=== PATIENT | male | born 1965 | race Caucasian/White ===

== ENCOUNTER 2023-09-20 09:42 | Emergency (ER) | payer OTHER, SELFPAY ==
[2023-09-20 09:43] VITALS: BP 147/87; PULSE 75; RESP 16; TEMP 36.4; O2SAT 94; BMI 32.4
--- NOTE | 2023-09-20 09:47 | EDS_ITS ---
HPI HPI - GI History of Present Illness Chief Complaint: Abd Pain Informant: patient Abdominal Pain/Flank Pain Onset: Days (2) Context: Gradual Onset Timing: Continuous Quality: Dull and Sharp Location: LUQ and LLQ Worsened by: Movement Relieved by: Nothing Nausea/Vomiting/Emesis GI Symptom: Negative for Nausea or Vomiting Diarrhea/Melena/Hematochezia GI Symptom: Negative for Diarrhea, Melena or Hematochezia Associated Symptoms Associated Symptoms: Negative for Dysuria, Frequency or Hematuria Narrative Narrative: Patient presents with abdominal pain that has been getting progressively worse. Patient states that it has been constant for the past 2 days. Patient states that prior to that has been intermittent. Patient describes the pain as sharp at times and dull at times. Patient states that his pain is mainly on the left side of his abdomen. Patient states it is worse with certain movements. Patient denies any nausea or vomiting. Patient denies any diarrhea, melena, or hematochezia. Patient denies any dysuria, frequency, or hematuria. Patient denies any fevers or chills. PFSH PFSH Medical History no medical history no medical history Allergy/AdvReac Type Severity Reaction Status Date / Time No Known Allergies Allergy Verified 09/20/23 09:44 Surgical History (Updated 09/20/23 @ 10:[address] Raj Quintero DO) History of inguinal herniorrhaphy History of surgery on left wrist S/P ORIF (open reduction internal fixation) fracture Social History Smoking Status: Never smoker ROS ROS ED Constitutional Constitutional ED: Denies chills or fever(s) Eyes Eyes: Denies blurry vision or change in vision ENT ENT ED: Denies rhinorrhea or sore throat Cardiovascular Cardiovascular: Reports chest pain; Denies palpitations Respiratory/Chest Respiratory/Chest: Denies cough or dyspnea Gastrointestinal Gastrointestinal: Reports abdominal pain; Denies nausea or vomiting Genitourinary Genitourinary ED: Denies dysuria or hematuria Musculoskeletal Musculoskeletal: Denies back pain or neck pain Integumentary Denies abscess or rash Neurologic Neurologic: Denies headache(s) or weakness Allergic/Immunologic Allergic/Immunologic ED: Denies mouth swelling or urticaria EXAM Physical Exam Const Vital Signs: 09/20/23 09:43 Temperature 97.5 F L Temperature Source Temporal Pulse Rate 75 Respiratory Rate 16 Blood Pressure 147/87 H Blood Pressure Mean 107 Pulse Ox 94 Oxygen Delivery Method Room Air Positive well nourished and well developed General Appearance ED: well developed and NAD HEENT Reports moist mucous membranes Neck supple and no JVD Resp normal respiratory effort and clear to auscultation bilaterally Cardio regular rate and regular rhythm GI Palpation: soft and tender LLQ and LUQ; Negative for guarding or rebound tenderness present Back/Spine no CVA tenderness Extremity full ROM Neuro CN's II-XII intact bilaterally, moves all extremities and no sensory deficits noted Sensorium / Orientation: alert Motor Exam: strength 5/5 throughout Psych mental status grossly normal MDM MDM MDM Narrative Medical decision making narrative: Differential diagnosis includes diverticulitis, colitis, bowel obstruction, perforation, ureteral calculus, pyelonephritis, urinary tract infection, and abdominal strain. CT scan of the abdomen pelvis will be obtained to assess for ureteral calculus, bowel obstruction, and perforation. CBC will be obtained to assess for leukocytosis and anemia. Basic metabolic profile will be obtained to assess for electrolyte abnormality and renal function. Urinalysis will be obtained to assess for urinary tract infection and hematuria. Lab Data Attestation: I reviewed the patient's lab results. Lab results narrative: CBC was reviewed and was within normal limits. Basic metabolic profile was reviewed and was within normal limits. Urinalysis was reviewed. There is no evidence of urinary tract infection or hematuria. Labs: Laboratory Results - last 24 hr 09/20/23 10:00 WBC 8.0 RBC 4.87 Hgb 14.1 Hct 42.6 MCV 87.5 MCH 29.0 MCHC 33.1 RDW Std Deviation 42.0 RDW Coeff of Reinaldo 13.2 Plt Count 222 MPV 10.7 Immature Gran % (Auto) 0.300 Neut % (Auto) 54.3 Lymph % (Auto) 30.2 [place] % (Auto) 12.5 H Eos % (Auto) 1.9 Baso % (Auto) 0.8 Absolute Neuts (auto) 4.3 Absolute Lymphs (auto) 2.40 Nucleated RBC % 0 Sodium 138 Potassium 4.1 Chloride 109 H Carbon Dioxide 24.0 Anion Gap 5 BUN 18 Creatinine 1.01 Estim Creat Clear Calc 76.19 Est GFR (MDRD) Af Amer 97 Est GFR (MDRD) Non-Af 80 BUN/Creatinine Ratio 17.8 Glucose 97 Calcium 9.0 Urine Color Yellow Urine Clarity Sl. Cloudy Urine pH 6.0 Ur Specific [place] 1.010 Urine Protein Negative Urine Glucose (UA) Normal Urine Ketones Negative Urine Occult Blood Negative Urine Nitrite Negative Urine Bilirubin Negative Urine Urobilinogen Normal Ur Leukocyte Esterase Negative Urine RBC 0 SEEN Urine WBC 0 SEEN Ur Squamous Epith Cells 0 SEEN Urine Bacteria 0 SEEN Urine Mucus 0 SEEN Radiography Diagnostic Testing: Clinical Impression(s) from Imaging Studies Abdomen/Pelvis CT 09/20/23 10:29 IMPRESSION: 1. Small gallstone without evidence of biliary dilatation. 2. No focal acute inflammatory process. Electronically Signed: Marco Cadet MD at 11:42 EST , CT scan of the abdomen pelvis was obtained. There is a small gallstone but no evidence of biliary dilatation or pericholecystic fluid. There is no acute inflammatory process noted. This was interpreted by the radiologist and was also independently reviewed by myself. Treatment and Re-Evaluation :: Patient was given IV fluids, morphine, and Zofran. Patient was advised of his findings. Patient is feeling better on reevaluation. Patient was instructed to follow-up with his primary care physician in 5 to 7 days for further evaluation. Patient was advised he may need further testing as an outpatient. Patient understood and was agreeable with the plan. All questions were answered. Discharge Plan Triage Chief Complaint: Abd Pain ED Provider: Raj Quintero Dx/Rx/DC Orders Clinical Impression: Abdominal pain Instructions: ED Abdominal Pain Unkn Cause Male... Primary Care Provider: Gil Magdaleno Referrals: Gil Magdaleno DO [Primary Care Provider] - 5-7 Days Disposition Disposition: Home, Self Care
--- NOTE | 2023-09-20 10:29 | CT_ITS ---
INDICATION: Abdominal pain EXAMINATION: CT ABDOMEN AND PELVIS WITHOUT CONTRAST - CT Abdomen And Pelvis W/O Contrast Injection TECHNIQUE: Helically acquired images were obtained of the abdomen and pelvis without oral or IV contrast. A radiation dose optimization technique was used for this scan. IV Contrast dosage and agent: None. Oral contrast: None. RADIATION DOSAGE (If Supplied By Facility): CTDIvol = ( 17.23 ) mGy, DLP = ( 865.46 ) mGycm COMPARISON: No relevant prior comparison study available FINDINGS: LOWER CHEST: Mild atelectasis or scarring. No cardiomegaly or pericardial effusion. LIVER: Homogeneous. No focal lesion is seen on this exam without contrast. Significant artifacts from patient''s arms GALLBLADDER AND BILIARY TREE: Small gallstone in the gallbladder neck. No gallbladder distension or wall edema. No intra- or extrahepatic biliary ductal dilation. PANCREAS: No focal cystic or solid mass. SPLEEN: Normal size without focal cystic or solid mass. ADRENAL GLANDS: No nodules. KIDNEYS AND URETERS: Normal renal size and position. No hydronephrosis. PERITONEUM: No ascites or free air. No other fluid collection. BOWEL: No evidence of acute appendicitis. No stomach or bowel distension. Thickening of the transverse and descending colon likely due to underdistention. No evidence of acute diverticulitis. LYMPH NODES: No enlarged mesenteric or retroperitoneal lymph nodes. VESSELS: Aorta is non-dilated. URINARY BLADDER: Unremarkable. REPRODUCTIVE ORGANS: No pelvic masses. ABDOMINAL WALL: No discrete abdominal or pelvic wall hernia. BONES: No lytic or blastic abnormality. CT/Abdomen/Pelvis without Cont IMPRESSION: 1. Small gallstone without evidence of biliary dilatation. 2. No focal acute inflammatory process. Electronically Signed: Marco Cadet MD at 11:42 EST ,
[2023-09-20 10:38] LABS: Bacteria 0 SEEN /hpf (None Seen); Mucous, Urine 0 SEEN /hpf (<or=2+); Red Blood Cells-Urine 0 SEEN /hpf (0-5); Squamous Epithelial Cells - UA 0 SEEN /hpf (0-5); White Blood Cells 0 SEEN /hpf (0-5)
[2023-09-20 10:40] LABS: Color, Urine Yellow (Yellow); Glucose, Dipstick Normal (Normal); Ketone-Dipstick Negative (Negative); Leukocyte Esterase-Dipstick Negative /ul (Negative); Nitrite-Dipstick Negative (Negative); Occult Blood-Urine Negative /ul (Negative); Protein-Dipstick Negative (Negative); Urine Bilirubin Dipstick Negative (Negative); Urine Clarity Sl. Cloudy (Clear); Urine Urobilinogen Normal (Normal)
[2023-09-20] MEDS: Ondansetron 4 MG/2 ML Vial IV (10:41)
[2023-09-20] MEDS: Morphine 4 MG/ML Syringe IV (10:42)
[2023-09-20] MEDS: 0.9% Normal Saline (1000mL) 1,000 ML 1000 ML IV (10:42)
[2023-09-20 10:49] LABS: Absolute Neutrophil Count 4.3 X10^3/uL (2.0-7.7); Basophil# 0.06 X10^3/uL; Basophil% 0.8 % (0-1); Eosinophil# 0.15 X10^3/uL; Eosinophils% 1.9 % (0-5); Hematocrit 42.6 % (40-54); Hemoglobin 14.1 g/dL (13.0-16.5); Lymphocyte % 30.2 % (19-41); Mean Corp Hgb Conc 33.1 g/dL (32-36); Mean Corpuscular Volume 87.5 fL (80-94); Mean Platelet Vol. 10.7 fl (6.2-12.0); Monocyte# 0.99 X10^3/uL; Monocyte% 12.5 % (0-10); NRBC Flagged by Analyzer 0 % (0-5); Neutrophil # 4.33 X10^3/uL (2.7-7.7); Neutrophil % 54.3 % (47-70); Platelet Count 222 K/mm3 (150-450); RBC Distribution Width CV 13.2 % (11.6-14.6); Red Blood Count 4.87 M/mm3 (4.6-6.2)
[2023-09-20 10:56] LABS: Anion Gap 5 (5-15); BUN 18 mg/dL (7-18); BUN/Creat Ratio 17.8 RATIO (10-20); Chloride 109 mmol/L (98-107); Creatinine, Serum 1.01 mg/dL (0.70-1.30); EST Glomerular Filtration Rate 80 mL/min (>60); Est Glom Filt Rate - Afr Amer 97 mL/min (>60); Estimated Creatinine Clearance 76.19 ml/min; Glucose 97 mg/dL (74-106); Potassium 4.1 mmol/L (3.5-5.1); Sodium Level 138 mmol/L (136-145)
--- OUTSIDE RECORDS SUMMARY | 2023-09-20 11:30 | XMS RPT_ITS | CCD ---
Author Name Unknown Address [facility] [address] [place] [address] Organization [facility] Care Team Providers Care Asbestos Worker Name Role Phone PHYSICIAN, NONE Primary Care Physician Unavailab le Medications Current Medications Medication Drug Class(es) Dates Sig (Normalized) Sig (Original) acetaminophen 1000 mg oral tablet (1 source) Start: 06-19-2019 Tylenol Dose : 1,000 mg = 2 tab(s), Oral, q6h, PRN as needed for pain, 0 Refill(s) Start Date: 06/19/19 Status: Ordered bacitracin 0.5 unt/mg topical ointment (1 source) Start: 06-19-2019 bacitracin topical ointment Apply 1 nelsy, Topical, TID, 0 Refill(s), Ointment Start Date: 06/19/19 Status: Ordered docusate sodium 100 mg oral capsule (1 source) Start: 06-19-2019 Colace 100 mg oral capsule Dose : 100 mg = 1 cap(s), Oral, BID, PRN Constipation, 0 Refill(s) Start Date: 06/19/19 Status: Ordered ibuprofen 600 mg oral tablet (1 source) Nonsteroidal Anti-inflammatory Drug Start: 06-19-2019 Motrin Dose : 600 mg = 1 tab(s), Oral, TID, PRN as needed for pain, 0 Refill(s) Start Date: 06/19/19 Status: Ordered Milk of Magnesia (1 source) Start: 06-19-2019 take 1 dose by mouth once daily as needed for constipation Milk of Magnesia Dose = 30 mL, Oral, qDay, PRN Constipation, 0 Refill(s) Start Date: 06/19/19 Status: Ordered Completed/Discontinued Medications Medication Drug Class(es) Dates Sig (Normalized) Sig (Original) bisacodyl 10 mg rectal suppository (1 source) Stimulant Laxative Start: 06-19-2019 Dulcolax Laxative 10 mg rectal suppository Dose : 10 mg = 1 supp, Rectal, qDay, PRN Constipation, 0 Refill(s) Start Date: 06/19/19 Status: Ordered Results Test Name Value Interpretation Reference Range Facil ity Encounters Encounter Date Encounter Type Care Provider Facility Start: 02-10-2022 End: 02-10-2022 Patient encounter procedure STELLA GATES [facility] Procedures Date Procedure Procedure Detail Performing Clinician Elbow joint operations STELLA KODY Hernia repair STELLA KODY Tendon laceration (disorder) STELLA GATES Social History Date Type Detail Facility Start: 06-17-2019 Tobacco smoking status Light t obacco smoker (finding) [facility] Sex Assigned At Male [facility] Evaluation + Plan note Note Date & Type Note Facility Evaluation + Plan note No data available for this section [facility] Discharge instructions Note Date & Type Note Facility Hospital Discharge instructions No data available for this section [facility] Progress note Note Date & Type Note Facility Progress note No data available for this section [facility] Summary Purpose Family History No Family History Records Found Advance Directives No Advanced Directives Records Found Additional Source Comments (unrecognized sect ion and content) No Status Records Found INFORMATION SOURCE (unrecogn ized section and content) FOR RECORDS PERTAINING TO PATIENTS WHO ARE OR HAVE BEEN ENROLLED IN A CHEMICAL DEPENDENCY/SUBSTANCEABUSE PROGRAM, SOME INFORMATION MAY BE OMITTED. This clinical summary was aggregated from multiple sources. Caution should be exercised in using it in the provision of clinical care. This summary normalizes information from multiple sources, and as a consequence, information in this document may materially change the coding, format and clinical context of patient data. In addition, data may be omitted in some cases. CLINICAL DECISIONS SHOULD BE BASED ON THE PRIMARY CLINICAL RECORDS. [facility]. provides no warranty or guarantee of the accuracy or completeness of information in this document.
== END 2023-09-20 12:17 | disposition home or self-care (01) ==
PROVIDERS: Emergency Provider Emergency Medicine; PCP Family Medicine; Visit Provider Emergency Medicine
DX: R10.9 Unspecified abdominal pain (principal)
CPT/HCPCS: 74176; 80048; 81001; 85025; 96361; 96374; 96375; 99283; J7030; A4216; J2405

== ENCOUNTER → 2024-08-23 | Outpatient (CLI) | payer SELFPAY ==
--- NOTE | 2024-08-23 16:39 | CT_ITS ---
STUDY: CT ABDOMEN AND PELVIS WITHOUT CONTRAST REASON FOR EXAM: Male, 59 years old. LEFT SIDED PAIN GOING INTO CHEST. R/O LEFT INGUINAL HERNIA. PRIOR LEFT INGUINAL HERNIA REPAIR RADIATION DOSAGE (If Supplied By Facility): CTDIvol = ( 14.68 ) mGy, DLP = ( 829.15 ) mGycm TECHNIQUE: Transaxial images were obtained from the dome of the diaphragm to the symphysis pubis without oral contrast, and without intravenous contrast. Sagittal and coronal images were reconstructed. Individualized dose optimization techniques were used for this CT. COMPARISON: Comparison is made with prior study dated September 20, 2023. FINDINGS: There is a 1.8 cm x 1.4 cm well-defined nodule in the posterior lateral aspect of the left lower lobe. Minimal calcification is seen. This may represent a hamartoma.. Mild coronary artery calcification. Normal liver. There is a small solitary gallstone. Normal spleen. Normal pancreas. Normal bilateral adrenal glands. Normal right kidney. Normal left kidney. There is a small hiatal hernia. Normal small intestine. Normal colon. The appendix is visualized and appears normal. Normal abdominal aorta. Normal inferior vena cava. There is a small retroperitoneal lymphadenopathy with enlarged nodes no greater than 10mm in the short axis diameter. Normal urinary bladder. There is a small umbilical hernia containing fat. There are degenerative changes of the visualized lumbar spine. CT/Abdomen/Pelvis without Cont IMPRESSION: 1.8 cm x 1.4 cm well-defined nodule in the posterolateral aspect of the left lower lobe. Minimal calcification is seen. This may represent a hamartoma. Stable small solitary gallstone. Electronically Signed: Colt Weir MD at 14:38 EST ,
== END | disposition home or self-care (01) ==
LOC: CT 16:33
PROVIDERS: PCP Nurse Practitioner Family; Referring Provider Nurse Practitioner Family; Visit Provider Nurse Practitioner Family
DX: K46.9 Unspecified abdominal hernia without obstruction or gangrene (principal)
CPT/HCPCS: 74176

== ENCOUNTER 2024-12-18 21:53 | Emergency (ER) | payer SELFPAY ==
[2024-12-18 21:54] VITALS: BP 200/94; PULSE 65; RESP 16; TEMP 36.8; O2SAT 96
[2024-12-18 22:10] LABS: Absolute Lymphocyte Count 2.56 X10^3/uL (0.83-4.51); Absolute Neutrophil Count 5.4 X10^3/uL (2.0-7.7); Basophil# 0.08 X10^3/uL; Basophil% 0.9 % (0-1); Eosinophil# 0.16 X10^3/uL; Eosinophils% 1.7 % (0-5); Hematocrit 41.9 % (40-54); Hemoglobin 14.3 g/dL (13.0-16.5); Lymphocyte # 2.56 X10^3/ul (0.83-4.51); Lymphocyte % 27.6 % (19-41); Mean Corp Hgb Conc 34.1 g/dL (32-36); Mean Corpuscular Hgb 29.4 pg (27.0-32.0); Mean Platelet Vol. 10.1 fl (6.2-12.0); Monocyte# 1.01 X10^3/uL; Monocyte% 10.9 % (0-10); NRBC Flagged by Analyzer 0 % (0-5); Neutrophil # 5.44 X10^3/uL (2.7-7.7); Neutrophil % 58.6 % (47-70); Platelet Count 199 K/mm3 (150-450); RBC Distribution Width CV 13.3 % (11.6-14.6); RBC Distribution Width SD 41.5 fl (35.1-43.9); Red Blood Count 4.87 M/mm3 (4.6-6.2); White Blood Count 9.3 K/mm3 (4.4-11.0)
--- NOTE | 2024-12-18 22:36 | EX.ED.DYSGE1 ---
HPI History of Present Illness Chief Complaint: Abd Pain PFSH PFSH Home Medications ?Medication ?Instructions ?Recorded ?Last Taken ?Type omega-3 fatty acids 500 mg capsule 500 mg PO DAILY 12/18/24 Unknown History sertraline 50 mg tablet 50 mg PO DAILY 12/18/24 Unknown History ondansetron 4 mg disintegrating 4 mg PO Q8H PRN PRN Nausea #10 tabs 12/19/24 Unknown Rx tablet Allergy/AdvReac Type Severity Reaction Status Date / Time No Known Allergies Allergy Verified 12/18/24 21:59 Surgical History (Updated 09/20/23 @ 10:[address] Raj Quintero DO) S/P ORIF (open reduction internal fixation) fracture History of surgery on left wrist History of inguinal herniorrhaphy Social History Smoking Status: Never smoker EXAM Physical Exam Const Vital Signs: 12/18/24 21:54 12/18/24 23:53 Temperature 98.3 F Temperature Source Oral Pulse Rate 65 61 Respiratory Rate 16 18 Blood Pressure 200/94 H 113/70 Blood Pressure Mean 129 84 Pulse Ox 96 94 Oxygen Delivery Method Room Air Room Air MDM [facility] MDM Narrative Medical decision making narrative: HISTORY OF PRESENT ILLNESS: Chief complaint: Abdominal pain 59-year-old male here with left abdominal pain. Notes this began today. Is severe it is acute his left lower quadrant. No chest pain or shortness of breath. No urinary complaints. No flank pain. REVIEW OF SYSTEMS: Pertinent positives: Abdominal pain, nausea Pertinent negatives: Urinary complaints, flank pain PHYSICAL EXAM: Nursing triage notes reviewed, Vital signs reviewed Constitutional: please see mdm HENT: MMM Eyes: Pupils equal round and reactive to light, Extraocular muscles intact Neck: No stridor, no JVD, full neck ROM Lungs: Clear to auscultation, No wheezing or rales. No increased work of breathing, no conversational dyspnea, no accessory muscle use, no nasal flaring. No respiratory distress noted Heart: Regular rate and rhythm, No murmurs, No rubs and No gallops, 2+ distal pulses (radial, femoral, posterior tibial) in all extremities Abdomen: Soft, left lower quadrant TTP, slight distention but no rigidity, rebound or guarding, no obvious peritoneal signs, no palpable pulsatile abdominal masses, no auscultated abdominal bruit : No CVAT Extremities: No edema Neuro: No new focal neurological deficits, cranial nerves II through XII intact, 5/5 strength in all present extremities. Intact sensation to light touch in all present extremities, 2+ reflexes bilateral patella tendons. Skin: No rash or lesions noted MEDICAL DECISION MAKING: Chief Complaint: please see HPI External records reviewed: Reviewed prior CT scan abdomen pelvis from August 2024 which showed A small hiatal hernia, normal intestine, normal colon, no report of a hernia in this read. Factors affecting care: Gallstone, hiatal hernia Social determinants of health: none History obtained from others: none Consults: none [facility] Narrative: The patient was initially hypertensive otherwise afebrile nontoxic-appearing. With left lower quadrant TTP. Slight distention but no peritoneal signs. I considered the following differential diagnosis: AAA, small bowel obstruction, abdominal perforation, appendicitis, pancreatitis, hepatobiliary pathology (acute cholecystitis), mesenteric ischemia, pathology (ie nephrolithiasis, pyelonephritis). ALL IMAGES (IF OBTAINED) HAVE BEEN PERSONALLY REVIEWED AND INTERPRETED BY MYSELF. CBC without leukocytosis, severe anemia, no thrombocytopenia. CMP without evidence of acute kidney injury, significant electrolyte abnormality, anion gap to suggest end organ hypo-perfusion, no evidence of metabolic acidosis with a normal bicarbonate, no evidence of hepatobiliary obstructive pathology. Lipase is wnl indicating no pancreatic inflammation. CT scan abdomen/pelvis shows no evidence of obvious life-threatening pathology lactate is wnl indicating no end-organ hypoperfusion and/or hypoxia. On reassessment repeat abdominal exam is benign. Blood pressure improved to 113/70. The etiology the patient's complaints unclear could be gas could be musculoskeletal but is not life-threatening given unremarkable labs and images. Patient is appropriate discharge home The patient and/or family, caregivers express understanding. The patient and/or family, caregivers agrees with the plan. Shared decision making: I will have a discussion with the patient and or visitors regarding risk/benefits of further testing or admission. They will be made aware of of the risk/benefits inherent in this decision they will be given the opportunity to voice understanding. Total critical care time today provided was at least 0 minutes. This excludes separately billable procedures. Critical care time (if documented) is secondary to the patient having high probability of clinically significant/life threatening deterioration in the patient's condition which required my urgent intervention. Impression: 1. Acute abdominal pain 2. Diverticulosis Dispo: Discharge This note was generated with Elecar dictation software. It may contain incorrect words, spelling, and punctuation that were not noted in review of the chart prior to signing. Lab Data Labs: Laboratory Results - last 24 hr 12/18/24 12/18/24 12/18/24 21:41 22:35 23:06 WBC 9.3 RBC 4.87 Hgb 14.3 Hct 41.9 MCV 86.0 MCH 29.4 MCHC 34.1 RDW Std Deviation 41.5 RDW Coeff of Reinaldo 13.3 Plt Count 199 MPV 10.1 Immature Gran % (Auto) 0.300 Neut % (Auto) 58.6 Lymph % (Auto) 27.6 [place] % (Auto) 10.9 H Eos % (Auto) 1.7 Baso % (Auto) 0.9 Absolute Neuts (auto) 5.4 Absolute Lymphs (auto) 2.56 Nucleated RBC % 0 Sodium 139 Potassium 4.2 Chloride 105 Carbon Dioxide 21.4 Anion Gap 13 BUN 24 H Creatinine 1.10 Est GFR (MDRD) Non-Af 77 BUN/Creatinine Ratio 21.9 H Glucose 137 H Lactic Acid 1.0 Calcium 9.2 Total Bilirubin 0.18 AST 18 ALT 21 Alkaline Phosphatase 63 Total Protein 7.5 Albumin 4.2 Globulin 3.3 Albumin/Globulin Ratio 1.3 Lipase 34 Urine Color Yellow Urine Clarity Clear Urine pH 6.0 Ur Specific [place] 1.025 Urine Protein 30 H Urine Glucose (UA) Normal Urine Ketones Negative Urine Occult Blood 25 H Urine Nitrite Negative Urine Bilirubin Negative Urine Urobilinogen Normal Ur Leukocyte Esterase Negative Urine RBC 0 SEEN Urine WBC 0 SEEN Ur Squamous Epith Cells 0 SEEN Urine Bacteria RARE Urine Mucus 0 SEEN Radiography Diagnostic Testing: Clinical Impression(s) from Imaging Studies Abdomen/Pelvis CT 12/18/24 23:27 IMPRESSION: 1. 2 cm pulmonary nodule within the left lower lobe. Recommend further evaluation with PET-CT or tissue sampling as clinically indicated. 2. Patchy opacity within the right middle lobe with tree-in-bud nodularity possibly representing an infectious/inflammatory process. 3. Diverticulosis. Reading Location: [facility] Discharge Plan Triage Chief Complaint: Abd Pain ED Provider: Jus,Lauri Dx/Rx/DC Orders Instructions: ED Abdominal Pain Unkn Cause Male... Prescriptions: New ondansetron 4 mg tablet,disintegrating 4 mg PO Q8H PRN PRN (Reason: Nausea) Qty: 10 0RF No Action sertraline 50 mg tablet 50 mg PO DAILY omega-3 fatty acids 500 mg capsule 500 mg PO DAILY Primary Care Provider: Kia Lee Referrals: Kia Lee, [facility] DES[employer] [Primary Care Provider] - Activity Restrictions/Additional Instructions: Thank you for trusting us with your care today! Your labs images are reassuring. Specifically no sign of an acute surgical pathology in your abdomen. Please take Tylenol (2 pills, 650 mg), ibuprofen (2 pills, 400 mg) every 6 hours as needed for pain and fever control. Please return to the emergency department if your symptoms change or worsen. Please follow with your primary care physician for further outpatient evaluation and management. Print Language: Citizen Of [place]
[2024-12-18 22:40] LABS: ALB/GLOB Ratio 1.3 RATIO (0.9-2.4); AST(SGOT) 18 U/L (<=37); Alanine Aminotransfer ALT/SGPT 21 U/L (<=46); Albumin, Serum 4.2 g/dL (3.4-4.8); Alkaline Phosphatase 63 U/L (40-129); Anion Gap 13 (5-15); BUN 24 mg/dL (4-19); BUN/Creat Ratio 21.9 RATIO (10-20); Calcium,Total 9.2 mg/dL (7.6-11.0); Carbon Dioxide 21.4 mmol/L (21.0-32.0); Chloride 105 mmol/L (98-108); EST Glomerular Filtration Rate 77 (>60); Globulin 3.3 g/dL (2.2-4.2); Glucose 137 mg/dL (70-99); Lipase 34 U/L (13-75); Potassium 4.2 mmol/L (3.3-5.1); Protein, Total 7.5 g/dL (5.9-8.4); Sodium Level 139 mmol/L (133-145); Total Bilirubin 0.18 mg/dL (0.00-1.30)
[2024-12-18] MEDS: Ondansetron 4 MG/2 ML Vial IV (23:03)
[2024-12-18] MEDS: 0.9% Normal Saline (1000mL) 1,000 ML 999 ML IV (23:03)
[2024-12-18] MEDS: Ketorolac 15 MG/ML Vial IV (23:03)
[2024-12-18] MEDS: Morphine 4 MG/ML Syringe IV (23:04)
[2024-12-18 23:11] VITALS: BMI 30.8
[2024-12-18 23:13] LABS: Mucous, Urine 0 SEEN /hpf (<or=2+); Red Blood Cells-Urine 0 SEEN /hpf (0-5); Squamous Epithelial Cells - UA 0 SEEN /hpf (0-5); White Blood Cells 0 SEEN /hpf (0-5)
[2024-12-18 23:15] LABS: Color, Urine Yellow (Yellow); Glucose, Dipstick Normal (Normal); Ketone-Dipstick Negative (Negative); Leukocyte Esterase-Dipstick Negative /ul (Negative); Nitrite-Dipstick Negative (Negative); Occult Blood-Urine 25 /ul (Negative); Protein-Dipstick 30 mg/dl (Negative); Specific Gravity, Urine 1.025 (1.002-1.030); Urine Bilirubin Dipstick Negative (Negative); Urine Clarity Clear (Clear); Urine Urobilinogen Normal (Normal)
[2024-12-18 23:23] LABS: Bacteria RARE /hpf (None Seen)
--- NOTE | 2024-12-18 23:27 | CT_ITS ---
PROCEDURE: ABDOMEN/PELVIS W IV CONT ONLY 12/18/2024 REASON FOR EXAM: LEFT SIDED ABDOMINAL PAIN TECHNIQUE: Abdomen and pelvis CT with intravenous contrast. Coronal and Sagittal reconstruction series were provided. PATIENT PREPARATION: Per protocol ORAL CONTRAST TYPE: None. AMOUNT: None mL CONTRAST: Isovue 370 VOLUME: 100 mL 18 gauge IV One or more dose reduction techniques were used (e.g., Automated exposure control, adjustment of the mA and/or kV according to patient size, use of iterative reconstruction technique. RADIATION DOSE SUMMARY: CTDlvol: 15.2 mGy DLP: 1654 mGycm COMPARISON: None available FINDINGS: Lung bases: There is a 2 cm pulmonary nodule within the left lower lobe. Patchy opacity within the right middle lobe with tree-in-bud nodularity, possibly representing an infectious process. Liver: Unremarkable Gallbladder: Calcified gallstones within gallbladder lumen. Spleen: Unremarkable Pancreas: Unremarkable Adrenals: Unremarkable Kidneys: Kidneys are normal in size and configuration. No hydronephrosis. Bladder: No focal bladder wall thickening Reproductive Organs: Unremarkable Bowel: Unremarkable diverticulosis. Appendix: Unremarkable Lymph nodes: No lymphadenopathy. Vasculature: Patent vasculature. Peritoneum / Retroperitoneum: Unremarkable Bones: No aggressive osseous lesions. No acute fractures. CT/Abdomen/Pelvis W IV Cont ONLY IMPRESSION: 1. 2 cm pulmonary nodule within the left lower lobe. Recommend further evaluat ion with PET-CT or tissue sampling as clinically indicated. 2. Patchy opacity within the right middle lobe with tree-in-bud nodularity poss ibly representing an infectious/inflammatory process. 3. Diverticulosis. Reading Location: [id number]
[2024-12-18 23:53] VITALS: BP 113/70; PULSE 61; RESP 18; O2SAT 94
[2024-12-19 01:03] VITALS: BP 111/65; PULSE 61; RESP 18; TEMP 36.4; O2SAT 94
== END 2024-12-19 01:05 | disposition home or self-care (01) ==
PROVIDERS: Emergency Provider Emergency Medicine; PCP Nurse Practitioner Family; Visit Provider Emergency Medicine
DX: R10.32 Left lower quadrant pain (principal); K57.90 Diverticulosis of intestine, part unspecified, without perforation or abscess without bleeding
CPT/HCPCS: 74177; 80053; 81001; 83605; 83690; 85025; 96361; 96374; 96375; 99285; Q9967; A4216; J2405

== ENCOUNTER → 2025-01-26 | Outpatient (CLI) | payer SELFPAY ==
--- NOTE | 2025-01-26 13:50 | CT_ITS ---
PROCEDURE: CHEST WITHOUT CONTRAST 01/26/2025 REASON FOR EXAM: LUNG NODULE ON CT A/P Left-sided lung nodule on CT scan of the abdomen and pelvis. TECHNIQUE: Chest CT without contrast. Coronal and Sagittal reconstruction series were provided. One or more dose reduction techniques were used (e.g., Automated exposure control, adjustment of the mA and/or kV according to patient size, use of iterative reconstruction technique RADIATION DOSE SUMMARY: CTDlvol: 13.4 mGy DLP: 529.03 mGycm COMPARISON: Prior CT scan of the abdomen and pelvis dated December 19, 2024 FINDINGS: Hardware: None Lymph nodes: Small benign-appearing mediastinal lymph nodes. Heart and Vasculature: The heart is not enlarged. Coronary Artery Calcifications: No significant coronary artery calcification is seen. Lungs and Airways: There is evidence of a 1.6 cm x 1.8 cm well-defined rounded nodule in the anterior lateral aspect of the left lower lobe as seen on axial image number 69. This corresponds to the finding on prior CT scan of the abdomen and pelvis. Stable patchy opacity within the right middle lobe with a tree-in-bud nodularity suggestive of possible scarring. Pleura: Unremarkable Upper Abdomen: Tiny calcified gallstone in the region of the neck. Bones: No significant abnormality is seen. CT/Chest without Contrast IMPRESSION: Coronary artery calcification (CAC) is is absent Persistent 1.8 cm x 1.6 cm nodule in the left lower lobe. Correlation with PET scan recommended. Reading Location: [id number]
== END | disposition home or self-care (01) ==
LOC: CT 13:43
PROVIDERS: PCP Nurse Practitioner Family; Referring Provider Internal Medicine Critical Care Medicine; Visit Provider Internal Medicine Critical Care Medicine
DX: R91.1 Solitary pulmonary nodule (principal)
CPT/HCPCS: 71250

== ENCOUNTER → 2025-02-02 | Outpatient (CLI) | payer SELFPAY | END | disposition home or self-care (01) | LOC: LABSPEC 10:51 | PROVIDERS: PCP Nurse Practitioner Family; Referring Provider Nurse Practitioner Family; Visit Provider Nurse Practitioner Family | DX: R05.9 Cough, unspecified (principal); R91.1 Solitary pulmonary nodule ==

== ENCOUNTER → 2025-02-06 | Outpatient (CLI) | payer SELFPAY ==
[2025-02-08 17:08] LABS: Angiotensin Convert Enzyme 65 U/L (14-82); QNTFERON TB Mitogen Value > 10.00 IU/mL (.); QNTFERON TB Nil Value 0.05 IU/mL (.); QNTFERON TB1+ Ag Value 0.02 IU/mL (.); QNTFERON TB2+ Ag Value 0.04 IU/mL (.); QNTIFERON TB Positive Criteria Negative (Negative)
== END | disposition home or self-care (01) ==
PROVIDERS: PCP Nurse Practitioner Family; Referring Provider Nurse Practitioner Family; Visit Provider Nurse Practitioner Family
DX: R05.9 Cough, unspecified (principal); R91.1 Solitary pulmonary nodule
CPT/HCPCS: 36415; 82164; 86480; 87070; 87205

== ENCOUNTER → 2025-03-13 | Outpatient (CLI) | payer OTHER, SELFPAY ==
--- NOTE | 2025-03-13 10:30 | PET_ITS ---
PROCEDURE: PET/CT TUMOR BASE -THIGH INIT 03/13/2025 REASON FOR EXAM: 59 y/o M with SOLITARY PULMONARY NODULE, left lower lobe. TECHNIQUE: Following the intravenous administration of radionucleotide, image acquisition on a dedicated PET/CT unit was performed at one hour post injection. A preliminary CT study encompassing the Skull base, neck, chest, abdomen, pelvis, and proximal thighs was performed for purposes of attenuation correction and anatomic localization. The proximal thighs were also included. The patient's blood glucose level was 87 mg/dL (allowable range: 50-180 mg/dL). RADIOPHARMACEUTICAL: 14.681 mCi 18F-FDG (Fluorodeoxyglucose F18) IV was injected into he patient. RADIATION DOSE SUMMARY: Effective Dose: Approximately 7 mSv for a standard whole-body PET scan Organ Doses: Varies by organ, with higher doses typically to the bladder, liver, and brain COMPARISON: COMPARISON FROM CT, PET OR OTHER PERTINENT EXAMS: Chest CT of 01/26/2025. FINDINGS: Physiologic uptake: There may be expected metabolic uptake within the brain, tongue and floor of the mouth and larynx/vocal cords, heart, alessandra (many normal individuals have hilar uptake in less than 3 nodes with mildly avid hilar nodes less than 2.7 SUV), liver and spleen, system, and GI tract and symmetric muscle uptake. FDG AVID AND NON-AVID LESIONS. Reported avid SUV values (g/mL*) are maximum SUV. NECK: There are no significant neck abnormalities. CHEST: Chest wall- There are no significant chest wall abnormalities. Axilla- There are no significant axillary abnormalities. Lung parenchyma- The recently identified left lower lobe lateral pulmonary nodule does not show hypermetabolic activity on the PET portion of the examination no area of abnormal activity is seen within the parenchyma. Mediastinum- There are no significant hilar or mediastinal adenopathy. Pleura- There are no significant pleural abnormalities. ABDOMEN: Cholelithiasis is noted. Stomach- No significant abnormalities. Liver- No significant abnormalities. Spleen- No significant abnormalities. Pancrease- No significant abnormalities. Kidneys- No significant abnormalities. Bowel- Normal bowel activity. Spine- No significant abnormalities. PELVIS: Bowel- Normal physiologic bowel activity is identified. Masses- There are no pelvic masses. LOWER EXTREMITIES: Bones- With the use of bone window settings, there are no osteolytic or osteoblastic lesions. There are no FDG avid lesions within the visualized portion of the axial skeleton. PET/PET/CT Tumor Base -Thigh Init IMPRESSION: FDG avid- No focus of lung parenchymal abnormal metabolic activity is seen, including of the recently identified lateral left lower lobe nodule No significant avid lesions. Other: Cholelithiasis. Please note the low-dose CT scan was performed to facilitate PET image reconstr uction and anatomic localization and does not replace a diagnostic CT. Any diagnostic CT requested and performed at the time of the PET will be reported separately. Reading Location: [place] [id number]
== END | disposition home or self-care (01) ==
PROVIDERS: PCP Nurse Practitioner Family; Referring Provider Internal Medicine Critical Care Medicine; Visit Provider Internal Medicine Critical Care Medicine
DX: R91.1 Solitary pulmonary nodule (principal)
CPT/HCPCS: 78815; A9552